=== PATIENT | male | born 1960 | race Caucasian/White ===

== ENCOUNTER 2025-03-19 06:34 | Day surgery (SDC) | payer OTHER ==
[2025-03-19] MEDS: Lactated Ringers 1,000 ML IV SCH (06:59)
[2025-03-19] MEDS ORDERED: fentaNYL 50 MCG/ML SDV ONE (07:33)
[2025-03-19] MEDS ORDERED: Propofol 200 MG/20 ML SDV ONE ×2 (07:33→08:01)
[2025-03-19] MEDS ORDERED: Midazolam 1 MG/ML 2 ML SDV ONE (07:33)
== END 2025-03-19 09:00 | disposition home or self-care (01) ==
LOC: JP.SDS 06:34
PROVIDERS: ATTEND Surgery
DX: Z12.11 Encounter for screening for malignant neoplasm of colon (principal); D12.2 Benign neoplasm of ascending colon; K62.1 Rectal polyp
CPT/HCPCS: 00811; 45380; 45385; J2250; J2704; J3010; J7120